=== PATIENT | male | born 2000 | race Caucasian/White ===

== ENCOUNTER → 2020-02-08 14:36 | Outpatient (BNVA) | payer SELFPAY | PROVIDERS: Visit Provider Nurse Practitioner Family | DX: L02.413 Cutaneous abscess of right upper limb (principal); R89.5 Abnormal microbiological findings in specimens from other organs, systems and tissues; Z68.41 Body mass index [BMI] 40.0-44.9, adult | CPT/HCPCS: 84450; 87070; 87077; 87186 ==

== ENCOUNTER 2020-11-08 21:22 | Emergency (ER) | payer MEDICAID, SELFPAY ==
[2020-11-08 21:34] VITALS: BP 183/153; PULSE 85; RESP 18; TEMP 36.5; O2SAT 98; BMI 39.9
[2020-11-09] MEDS: ketorolac 60 mg/2 mL INJ IM (00:59)
[2020-11-09] MEDS: lisinopril 10 mg Tablet PO (01:00)
[2020-11-09] MEDS: diazePAM 5 mg Tablet PO (01:00)
[2020-11-09 01:03] VITALS: BP 189/114; PULSE 95; RESP 18; O2SAT 98
[2020-11-09 01:06] VITALS: BP 189/114; PULSE 81; O2SAT 99
--- NOTE | 2020-11-09 01:07 | W.ED.BACK ---
HPI - Back Pain/Injury General: Chief Complaint: Back Pain/Injury Stated Complaint: nerve/muscle damage through entire body Time Seen by Provider: 11/09/20 00:47 Source: patient Mode of arrival: ambulatory Limitations: no limitations History of Present Illness: HPI Narrative: 20-year-old male states that he has chronic back pain for years. He states he started having spasms again tonight in his left lower back. He states he come in waves but currently his pain is only 2 out of 10. Denies any numbness or tingling down his legs. Denies any bowel or bladder incontinence. Patient is hypertensive. He states that he has been hypertensive before does not take any medication for it. Denies any vomiting or diarrhea. Associated symptoms: Deny abdominal pain, chills, dysuria, fever(s), nausea or vomiting Review of Systems Const: Denies: fever(s), chills, body aches or change in appetite Eyes: Denies: blurry vision or eye discomfort ENMT: Denies: throat pain or dental pain Card: Denies: chest pain Resp: Denies: dyspnea GI: Denies: abdominal pain, nausea, vomiting or diarrhea : Denies: dysuria Musc: Reports: back pain Skin/Breast: Denies: rash Neuro: Denies: headache(s) Psych: Denies: depression Baldo/Lymph: Denies: easy bruising All/Imm: Denies: urticaria PFSH ED PFSH: Surgical History No pertinent past surgical history Social History Smoking and tobacco status: never smoked Second hand smoke exposure: No Alcohol intake: current Alcohol intake frequency: few times a month Alcohol type: beer Lives independently: No Household members: family Marital status: Single Current occupational status: student Current occupation: [employer] History of recent travel: Yes Details: home from college in [place], [place] Current gender identity: Male Physical Exam Const: COMMON NORMALS: no acute distress, patient oriented x3 and healthy appearing HENMT: COMMON NORMALS: normocephalic and atraumatic HEAD & SCALP: normocephalic and atraumatic Eye: COMMON NORMALS: Equal, round and reactive pupils present and EOMs intact bilaterally PUPIL: Yes Equal, round and reactive pupils present Neck/C-Spine: COMMON NORMALS: full ROM and supple Chest: COMMONS NORMALS: normal inspection of the chest and normal palpation of entire chest wall Resp: COMMON NORMALS: normal respiratory effort, No retractions, No use of accessory muscles and clear to auscultation bilaterally AUSCULTATION: clear to auscultation bilaterally Cardio: COMMON NORMALS: regular rate, regular rhythm and No murmurs present (Cardio) RATE: regular rate RHYTHM: regular rhythm GI: COMMON NORMALS: Normal to inspection, nondistended, normoactive bowel sounds present, Soft to palpation, non-tender and no masses PALPATION: Yes Soft to palpation Back/Pelvis: OTHER: Left lower back tenderness and no midline tenderness. Extremity: COMMON NORMALS: normal to inspection and full ROM Neuro: COMMON NORMALS: patient oriented x3, moves all extremities and no focal motor deficits Psych: COMMON NORMALS: mental status grossly normal, Normal thought process present and cooperative THOUGHT PROCESS: Normal thought process present Skin: COMMON NORMALS: no rashes or lesions noted and no wounds GENERAL SKIN EXAM: no rashes or lesions noted Course Vital Signs: Vital signs: Vital Signs Temperature 97.7 F 11/08/20 21:34 Pulse Rate 95 11/09/20 01:03 Respiratory Rate 18 11/09/20 01:03 Blood Pressure 189/114 11/09/20 01:03 Pulse Oximetry 98 11/09/20 01:03 MDM - Back Pain/Injury MDM Narrative: Medical decision making narrative: Catia presents with low back pain is chronic in nature. His exam here is benign with no midline tenderness. Patient has normal abdominal exam and no signs of epidural abscess or cord compression. Patient given Valium here for spasms and Toradol. Will prescribe him Robaxin and Naprosyn for home. He is quite hypertensive here. He states he does have high blood pressure typically the pain but his blood pressure is quite high and will start him on lisinopril. He is to follow-up with PCP and return if worsening. He understands agrees to plan. Discharge Plan Discharge Patient Disposition: Home Clinical Impression: Low back pain Qualifiers: Chronicity: chronic Back pain laterality: bilateral Sciatica presence: without sciatica Qualified Code(s): M54.5 - Low back pain Hypertension Qualifiers: Hypertension type: essential hypertension Qualified Code(s): I10 - Essential (primary) hypertension Condition: Stable Prescriptions: New Robaxin-750 750 mg tablet 750 mg PO Q6H Qty: 30 RF: 0 Naprosyn 500 mg tablet 500 mg PO BID PRN (Reason: pain) Qty: 20 RF: 0 lisinopril 10 mg tablet 10 mg PO DAILY Qty: 60 RF: 0 No Action naproxen 500 mg tablet 500 mg PO BID Qty: 60 RF: 0 Discharge Orders: Discharge ED (Routine); Ordered 11/09/20 Ordered By: Jaspreet Khanna Discharge Diet: Advance as tolerated Discharge Activity: Resume usual activity Patient Instructions: Hypertension (ED), Back Pain (ED) Coding Level of Care Code ED Technician [employer] for Vladimir Wheatley
== END 2020-11-09 01:09 | disposition home or self-care (01) ==
PROVIDERS: Emergency Provider Emergency Medicine
DX: M54.5 Low back pain (principal); I10 Essential (primary) hypertension
CPT/HCPCS: 96372; 99283; J1885

== ENCOUNTER 2021-06-24 06:00 | Outpatient (RCR) | payer MEDICAID, SELFPAY | END 2021-06-24 23:59 | disposition home or self-care (01) | LOC: TPT 06:00 | PROVIDERS: Referring Provider Nurse Practitioner Family; Visit Provider Nurse Practitioner Family | DX: M54.50 Low back pain, unspecified (principal) | CPT/HCPCS: 97110; 97163 ==

== ENCOUNTER 2021-06-25 06:00 | Outpatient (RCR) | payer MEDICAID, SELFPAY | END 2021-07-25 23:59 | disposition home or self-care (01) | LOC: TPT 06:00 | PROVIDERS: Referring Provider Nurse Practitioner Family; Visit Provider Nurse Practitioner Family | DX: M54.50 Low back pain, unspecified (principal) | CPT/HCPCS: 97110 ==

== ENCOUNTER → 2021-11-25 11:02 | Outpatient (BNVA) | payer MEDICAID, SELFPAY | PROVIDERS: Visit Provider Nurse Practitioner Family | DX: K52.9 Noninfective gastroenteritis and colitis, unspecified (principal); R11.0 Nausea; K21.9 Gastro-esophageal reflux disease without esophagitis; R10.9 Unspecified abdominal pain | CPT/HCPCS: 80053 ==

== ENCOUNTER → 2021-11-27 13:12 | Outpatient (BNVA) | payer MEDICAID, SELFPAY | PROVIDERS: Visit Provider Nurse Practitioner Family | DX: K21.9 Gastro-esophageal reflux disease without esophagitis (principal); K52.9 Noninfective gastroenteritis and colitis, unspecified; R11.0 Nausea | CPT/HCPCS: 87338 ==

== ENCOUNTER 2023-05-19 21:15 | Emergency (ER) | payer BC, SELFPAY ==
[2023-05-19 21:19] VITALS: BP 146/94; PULSE 81; RESP 16; TEMP 36.7; O2SAT 98; BMI 35.2
--- NOTE | 2023-05-19 23:19 | XRR_ITS ---
PROCEDURE INFORMATION: Exam: XR Chest Exam date and time: 05/20/2023 12:02 AM Age: 23 years old Clinical indication: Chest wall pain; Patient HX: Middle chest pain TECHNIQUE: Imaging protocol: Radiologic exam of the chest. Views: 1 view. COMPARISON: CR XR acute abdomen series [id number] 03/19/2018 9:51 PM FINDINGS: Lungs: Unremarkable. No consolidation. Pleural spaces: Unremarkable. No pleural effusion. No pneumothorax. Heart/Mediastinum: Unremarkable. No cardiomegaly. Bones/joints: Unremarkable. XR/XR chest 1V portable [id number] IMPRESSION: No acute findings.
--- NOTE | 2023-05-19 23:19 | XRR_ITS ---
PROCEDURE INFORMATION: Exam: XR Abdomen Exam date and time: 05/20/2023 12:06 AM Age: 23 years old Clinical indication: Abdominal pain; Epigastric; Additional info: Abd pain TECHNIQUE: Imaging protocol: Radiologic exam of the abdomen. Views: Frontal supine view of the abdomen. 1 View. COMPARISON: CR XR acute abdomen series [id number] 03/19/2018 9:51 PM FINDINGS: Gastrointestinal tract: Normal. No bowel dilation. Bones/joints: Unremarkable. XR/XR abdomen 1V* [id number] IMPRESSION: No acute findings.
--- NOTE | 2023-05-19 23:22 | W.ED.ANXIETY ---
HPI - Anxiety General: Chief Complaint: Anxiety Stated Complaint: Dizzy\Body Numb Time Seen by Provider: 05/19/23 23:13 History of Present Illness: Presented to the ER with anxiety after smoking synthetic marijuana about 3 days ago. Patient complained of a myriad of symptoms such as stomach cramps weakness lung pain abdominal pain all off and on since he smoked this. His friends also smoked this and they did not have any symptoms at all. Patient does have anxiety and is curious if his anxiety is causing all the symptoms. Review of Systems General: Reports: 10 or more systems reviewed and unremarkable except in HPI and below PFSH ED PFSH: Surgical History No pertinent past surgical history Social History Smoking and tobacco/nicotine status: never used tobacco/nicotine Second hand smoke exposure: No Alcohol intake: current Alcohol intake frequency: few times a month Alcohol type: beer Substance/Drug Use: never Lives independently: No Household members: family Marital status: Single Current occupational status: student Current occupation: [employer] Current gender identity: Male Physical Exam Const: COMMON NORMALS: no acute distress, average body habitus, patient oriented x3, no limitations, healthy appearing, alert and well nourished Neck/C-Spine: COMMON NORMALS: no JVD Chest: COMMONS NORMALS: normal inspection of the chest and normal palpation of entire chest wall Resp: COMMON NORMALS: normal respiratory effort, No retractions, No use of accessory muscles and clear to auscultation bilaterally AUSCULTATION: clear to auscultation bilaterally Cardio: COMMON NORMALS: no JVD, regular rate, regular rhythm, S1 normal heart sound present, S2 normal heart sound present, No gallops present (Cardio), No clicks present (Cardio), No murmurs present (Cardio) and No rub (Cardio) RATE: regular rate RHYTHM: regular rhythm HEART SOUNDS: S1 normal heart sound present and S2 normal heart sound present GI: COMMON NORMALS: Normal to inspection, nondistended, normoactive bowel sounds present, Soft to palpation, No hepatosplenomegaly present and no masses; negative for non-tender (Diffusely mildly tender) PALPATION: Yes Soft to palpation and Yes No hepatosplenomegaly present Neuro: COMMON NORMALS: patient oriented x3 SENSORIUM/ORIENTATION: Yes alert Course Vital Signs: Vital signs: Vital Signs Temperature 98.0 F 05/19/23 21:19 Pulse Rate 86 05/20/23 00:12 Respiratory Rate 16 05/20/23 00:12 Blood Pressure 157/95 05/20/23 00:12 Pulse Oximetry 97 05/20/23 00:12 Oxygen Delivery Me thod Room Air 05/20/23 00:12 MDM - Anxiety Medical Decision Making Physical exam was benign other than possible mild diffuse tenderness of the abdomen patient had lab work as well as an abdominal x-ray and chest x-ray all of which were negative. Patient be discharged home with a diagnosis of anxiety and should follow-up with his PCP. Differential Diagnosis Likely acute anxiety; Unlikely hyperventilation or panic disorder Medical Records I reviewed the patient's medical records. Lab Data I reviewed the patient's lab results. 05/19/23 23:30 05/19/23 23:30 Radiology Impressions Abdomen X-Ray 05/19/23 23:19 IMPRESSION: No acute findings. Chest X-Ray 05/19/23 23:19 IMPRESSION: No acute findings. Laboratory Results WBC 8.85 10^3/uL (3.29-11.43) 05/19/23 23:30 RBC 5.45 10^6/uL (3.85-5.65) 05/19/23 23:30 Hgb 15.70 g/dL (11.27-16.99) 05/19/23 23:30 Hct 46.2 % (37-53) 05/19/23 23:30 MCV 84.8 fl (82-101) 05/19/23 23:30 MCH 28.8 pg (27-33) 05/19/23 23:30 MCHC 34.0 g/dL (30-55) 05/19/23 23:30 RDW 12.7 % (12.1-15.1) 05/19/23 23:30 Plt Count 320 10^3/cmm (157-399) 05/19/23 23:30 MPV 8.9 fL (7.4-10.4) 05/19/23 23:30 Neut % (Auto) 75.3 % 05/19/23 23:30 Lymph % (Auto) 18.3 % 05/19/23 23:30 [place] % (Auto) 5.0 % 05/19/23 23:30 Eos % (Auto) 0.6 % 05/19/23 23:30 Baso % (Auto) 0.5 % 05/19/23 23:30 Neut # (Auto) 6.67 10^3/uL (1.8-7.7) 05/19/23 23:30 Lymph # (Auto) 1.6 10^3/uL (0.8-4.8) 05/19/23 23:30 [place] # (Auto) 0.4 10^3/uL (0.2-0.9) 05/19/23 23:30 Eos # (Auto) 0.1 10^3/uL (0.0-0.8) 05/19/23 23:30 Baso # (Auto) 0.0 10^3/uL (0.0-0.1) 05/19/23 23:30 Nucleated RBC % (auto) 0 % 05/19/23 23:30 Nucleated RBCs # 0.0 /100WBC 05/19/23 23:30 Sodium 139 mmol/L (136-145) 05/19/23 23:30 Potassium 3.9 mmol/L (3.5-5.1) 05/19/23 23:30 Chloride 102 mmol/L (98-107) 05/19/23 23:30 Carbon Dioxide 24 mmol/L (22-29) 05/19/23 23:30 Anion Gap 16.9 (5-19) 05/19/23 23:30 BUN 9 mg/dL (6-20) 05/19/23 23:30 Creatinine 1.0 mg/dL (0.7-1.2) 05/19/23 23:30 GFR Calculation 91.8 mL/min (90-130) 05/19/23 23:30 Glucose 104 mg/dL (65-115) 05/19/23 23:30 Calculated Osmolality 287 mOsm/kg (285-295) 05/19/23 23:30 Calcium 10.2 mg/dL (8.5-10.5) 05/19/23 23:30 Total Bilirubin 0.5 mg/dL (0.15-1.2) 05/19/23 23:30 AST 14 U/L (0-40) 05/19/23 23:30 ALT 15 U/L (0-41) 05/19/23 23:30 Alkaline Phosphatase 80 U/L (40-130) 05/19/23 23:30 Total Protein 8.7 g/dL (6.6-8.7) 05/19/23 23:30 Albumin 5.1 g/dL (3.5-5.2) 05/19/23 23:30 Globulin 3.6 g/dL (1.3-4.6) 05/19/23 23:30 Urine Color Yellow (Yellow) 05/19/23 23:35 Urine Appearance Clear (CLEAR) 05/19/23 23:35 Urine pH 9 (5-7) H 05/19/23 23:35 Ur Specific [place] 1.010 (1.005-1.030) 05/19/23 23:35 Urine Protein Neg (Negative) 05/19/23 23:35 Urine Glucose (UA) Norm (Normal) 05/19/23 23:35 Urine Ketones Negative (Negative) 05/19/23 23:35 Urine Blood Neg (Negative) 05/19/23 23:35 Urine Nitrate Negative (Negative) 05/19/23 23:35 Urine Bilirubin Neg (Negative) 05/19/23 23:35 Prot Sulfosalicylic Acd Negative (Negative) 05/19/23 23:35 Urine Urobilinogen Neg mg/dL (Negative) 05/19/23 23:35 Ur Leukocyte Esterase Negative (Negative) 05/19/23 23:35 Urine Opiates Screen Negative ng/mL (Negative) 05/19/23 23:35 Ur Barbiturates Screen Negative ng/mL (Negative) 05/19/23 23:35 Ur Phencyclidine Scrn Negative ng/mL (Negative) 05/19/23 23:35 Ur Amphetamines Screen Negative ng/mL (Negative) 05/19/23 23:35 U Benzodiazepines Scrn Negative ng/mL (Negative) 05/19/23 23:35 Urine Cocaine Screen Negative ng/mL (Negative) 05/19/23 23:35 U Marijuana (THC) Screen Positive ng/mL (Negative) H 05/19/23 23:35 All radiology interpretation(s) finalized by discharge Discharge Plan Discharge Patient Disposition: Home Clinical Impression: Acute anxiety Condition: Stable Prescriptions: No Action pantoprazole [Protonix] 40 mg tablet,delayed release (DR/EC) 40 mg PO DAILY 30 Days Qty: 30 3RF ondansetron 4 mg tablet,disintegrating 4 mg PO Q6H PRN (Reason: nausea and vomiting) Qty: 30 0RF lidocaine HCl 2 % solution 15 ml PO BID PRN (Reason: pain) Qty: 100 1RF Rx Instructions: Mix with Mylanta alum-mag hydroxide-simeth [Mylanta Maximum Strength] 400-400-40 mg/5 mL suspension 10 ml PO BID PRN (Reason: indigestion) 30 Days Qty: 200 0RF Rx Instructions: mix with viscous lidocaine lisinopril 10 mg tablet 10 mg PO DAILY Qty: 60 0RF Discharge Orders: Discharge ED (Routine); Ordered 05/20/23 Ordered By: Jordi Escobedo Referrals: Kymberly Garcia APN [Primary Care Provider] - Patient Instructions: Anxiety (ED) Activity Restrictions/Additional Instructions: All of your exam and testing come back normal. Is felt to be more anxiety in nature. Please do not smoke anymore synthetic marijuana. If your symptoms return and/or worsen please follow-up with your family practice physician for further evaluation testing. Coding Level of Care Code ED Leather Repairer for Vladimir Wheatley
[2023-05-19 23:35] LABS: Basophils % 0.5 %; Eosinophils # 0.1 10^3/uL (0.0-0.8); Eosinophils % 0.6 %; Hematocrit 46.2 % (37-53); Lymphocytes # 1.6 10^3/uL (0.8-4.8); Lymphocytes % 18.3 %; Mean Corpuscular Hemoglobin 28.8 pg (27-33); Mean Corpuscular Volume 84.8 fl (82-101); Mean Platelet Volume 8.9 fL (7.4-10.4); Monocytes # 0.4 10^3/uL (0.2-0.9); Neutrophils # 6.67 10^3/uL (1.8-7.7); Neutrophils % 75.3 %; Nucleated Red Blood Cells % 0 %; Platelet Count 320 10^3/cmm (157-399); Red Blood Count 5.45 10^6/uL (3.85-5.65); Red Cell Distribution Width 12.7 % (12.1-15.1); White Blood Count 8.85 10^3/uL (3.29-11.43)
[2023-05-19 23:54] LABS: Alanine Aminotransferase 15 U/L (0-41); Albumin Level 5.1 g/dL (3.5-5.2); Alkaline Phosphatase 80 U/L (40-130); Anion Gap 16.9 (5-19); Aspartate Amino Transferase 14 U/L (0-40); Blood Urea Nitrogen 9 mg/dL (6-20); Calcium 10.2 mg/dL (8.5-10.5); Carbon Dioxide 24 mmol/L (22-29); Chloride 102 mmol/L (98-107); Globulin 3.6 g/dL (1.3-4.6); Glomerular Filtration Rate 91.8 mL/min (90-130); Glucose 104 mg/dL (65-115); Osmolality Calculated 287 mOsm/kg (285-295); Potassium 3.9 mmol/L (3.5-5.1); Sodium 139 mmol/L (136-145); Total Bilirubin 0.5 mg/dL (0.15-1.2); Total Protein 8.7 g/dL (6.6-8.7)
[2023-05-20 00:03] LABS: Add Urine Microscopic? NO; Charge for UA Resulting for Rev
[2023-05-20 00:05] LABS: Bilirubin Urine Neg (Negative); Blood Urine Neg (Negative); Glucose Urine UA Norm (Normal); Ketones Urine Negative (Negative); Leukocyte Esterase Urine Negative (Negative); Nitrate Urine Negative (Negative); Protein Urine Neg (Negative); Sulfosalicylic Acid Urine Negative (Negative); Urine Appearance Clear (CLEAR); Urine Color Yellow (Yellow); Urobilinogen Urine Neg (Negative); pH Urine 9 (5-7)
[2023-05-20 00:12] VITALS: BP 157/95; PULSE 86; RESP 16; O2SAT 97
[2023-05-20 00:13] LABS: Amphetamines Screen Urine Negative (Negative); Barbiturates Screen Urine Negative (Negative); Benzodiazepines Screen Urine Negative (Negative); Cocaine Screen Urine Negative (Negative); Opiate Screen Urine Negative (Negative); PCP Screen Urine Negative (Negative); THC Screen Urine Positive (Negative)
[2023-05-20 01:13] VITALS: BP 157/95; PULSE 86; RESP 16; O2SAT 97
== END 2023-05-20 01:15 | disposition home or self-care (01) ==
PROVIDERS: Emergency Provider Emergency Medicine; PCP Nurse Practitioner Family
DX: F41.9 Anxiety disorder, unspecified (principal)
CPT/HCPCS: 36415; 71045; 74018; 80053; 80306; 81003; 85025; 99284